=== PATIENT | female | born 1980 | race Caucasian/White ===

== ENCOUNTER → 2017-10-16 | Day surgery (SDC) | payer OTHER ==
[~2017-10-16] VITALS: Ht 162.6 cm; Wt 56.5 kg
[~2017-10-16] MED LIST: BUPIVACAINE HCL PF 0.5% 30 ML VIAL ONE; CIPR-9 PO; CIPROFLOXACIN/DEXT 400 MG/200 ML IV SCH; FAMOTIDINE 20 MG/2 ML VIAL ONE; HYDR-3288 PO; LACTATED RINGER'S 1000 ML IV PRN; LIDOCAINE HCL 2% 50 ML VIAL ONE; METOPROLOL TARTRATE 25 MG TAB PO PRN; MIDAZOLAM HCL 2 MG/2 ML VIAL ONE; MONT10TA2 PO; NEOMYCIN/POLYMYXIN 1 ML G.U. IRRIGANT ONE; RESP: ALBUTEROL 2.5 MG/3 ML NEB (PRN) ONE; SODIUM CHLORID 0.9% 500 ML IV PRN; SYMB80AE INH
[2017-10-16] MEDS: CHLORHEXIDINE GLUCONATE 2 % 1 PACK (2 CLOTHS) TOPICAL PRN (08:30)
[2017-10-16 09:21] LABS: HEMATOCRIT 40.7 % (35.0-46.0); MEAN CELL VOLUME 87.8 FL (80.0-100.0); MEAN CORPUSCULAR HEMOGLOBIN 30.1 PG (27.0-34.0); MEAN CORPUSCULAR HGB CONC 34.3 % (32.0-36.0); PLATELET COUNT 181 TH/MM3 (150-450); RED BLOOD COUNT 4.64 MIL/MM3 (4.00-5.30); RED CELL DISTRIBUTION WIDTH 12.7 % (11.6-17.2); REVIEW FLAG FINAL; WHITE BLOOD COUNT 9.7 TH/MM3 (4.0-11.0)
[2017-10-16] MEDS: POVIDONE IODINE 5% (ANTISEPSIS KIT) 4 APPLICATIONS EACH NARE PRN ×2 (09:57→10:23)
[2017-10-16 11:20] VITALS: PULSE 75
[2017-10-16 12:30] VITALS: BP 140/56; PULSE 62; RESP 16; TEMP 97.7; O2SAT 98
--- NOTE | 2017-10-18 07:14 | MP ---
cc: JONH WORRELL III, M.D. DATE OF SURGERY: 10/16/2017 PREOPERATIVE DIAGNOSIS: Carpal tunnel syndrome. OPERATION: Right open carpal tunnel release. Neurolysis, internal. SURGEON: Jonh Worrell III, MD. TOURNIQUET TIME: 17 minutes at 200 mmHg. PROCEDURE The patient brought to the operating placed supine on the operating table after the correct site of surgery were verified by members of each team room multiple times including the patient and myself and after adequate preop markings and preoperative written consent were verified by one after adequate preoperative time-out was performed with satisfaction after adequate IV sedation achieved, The right upper extremity prepped and draped in traditional sterile surgical fashion. A 50/50 mixture of 2% plain lidocaine 0.5% Marcaine was infiltrated in skin and subcutaneous tissue at the base palm with the carpal tunnel was exsanguinated Dann wrap highly placed well-padded axillary tourniquet was inflated to 200 mmHg for a total 17 minutes longitudinally oriented incision within the skin crease was made at the base palm carried down through skin and subcutaneous tissue. Bipolar electrocautery was not needed at any time, the palmar fascia was retracted in opposite directions. The transverse carpal ligament identified and divided midline from its proximal most to its distal-most extents. Very notable was the fibrous sheath around the median nerve at the level of the wrist flexion crease. Precisely were the patient was having the majority of her discomfort. This was opened in its entirety freeing the nerve internally as well, it was opened from the distal forearm into the distal palm and the nerve was completely released and found be otherwise non compromised. 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 There were no findings of any mass effect or any other anatomic abnormalities. Thorough irrigation was performed for one liters worth. The skin edges were then reapproximated using running 4-0 nylon suture. The hand and arm were thoroughly cleansed dried. Adaptic dressing was applied to the wound followed by a bulky soft dressing. The circumferential dressing was applied usual fashion. The axillary tourniquet was released, the hand and all fingers became immediately soft, pink, warm and had brisk capillary refill of less than 2 seconds. The patient awakened from anesthesia and transported to Post Anesthesia Care Unit awake in stable condition at the end of the case. Jonh MD Kavita Skelton III /11:13 AM /6:54 AM
== END | disposition home or self-care (01) ==
LOC: PHSDC 06:35
PROVIDERS: ATTEND Orthopaedic Surgery Hand Surgery
DX: G56.01 Carpal tunnel syndrome, right upper limb (principal)
CPT/HCPCS: 01810; 36415; 64721; 85027; J0744; J2250; J7120; J7613